=== PATIENT | male | born 1970 | race Caucasian/White ===

== ENCOUNTER 2018-09-23 07:55 | Day surgery (SDC) | payer BC ==
[~2018-09-23 07:55] MED LIST: Lactated Ringers 1,000 ML IV SCH; Lidocaine 1% 6 ML ONE; Lidocaine 1%/Sod Bicarbonate in NS 8.4% 1 ML Syringe IDERM PRN; Propofol 200 MG/20 ML SDV ONE; Sodium Chloride 0.9% 10 ML Syringe FLUSH PRN; fentaNYL 100 MCG/2 ML SDV ONE
[2018-09-23] MEDS ORDERED: Albuterol 0.083% 2.5 MG/3 ML Neb Soln NEB ONE (08:32)
--- NOTE | 2018-09-23 08:41 | PCM.PREANE ---
Preanesthetic Assessment - Anesthesia/Transfusion/Family Hx Anesthesia History: Prior Anesthesia Without Reaction Family History of Anesthesia Reaction: No Transfusion History: No Prior Transfusion(s) Intubation History: Unknown - Review of Systems General: No Symptoms (morbid obesity) Pulmonary: No Symptoms (ETOH: rarely) Cardiovascular: No Symptoms, Dyspnea on Exertion Gastrointestinal: No Symptoms (GERD) Neurological: No Symptoms, Gait Disturbance (none noted but history of plantar fascitis) Other: Reports: Easy Bruising, Sinus Problem (PND-stuffy most days) - Physical Assessment NPO Status Date: 09/22/18 NPO Status Time: 22:00 Pulse: 70 O2 Sat by Pulse Oximetry: 96 Respiratory Rate: 20 Blood Pressure: 159/67 Temperature: 36.9 C Height: 1.85 m Weight: 169 kg ASA Class: 3 Mental Status: Alert & Oriented x3 Airway Class: Mallampati = 2 Dentition: Reports: Normal Dentition, Caries Thyro-Mental Finger Breadths: 3 Mouth Opening Finger Breadths: 3 ROM/Head Extension: Full Lungs: Clear to Auscultation, Normal Respiratory Effort (distant) Cardiovascular: Regular Rate, Regular Rhythm, No Murmurs - Lab Values: All lab values reviewed and noted and within acceptable ranges to proceed with colonoscopy. - Imaging/EKG Impressions: EKG: SB rate 49, PVC's - Allergies Allergies/Adverse Reactions: Allergies Allergy/AdvReac Type Severity Reaction Status Date / Time No Known Allergies Allergy Verified 09/22/18 17:34 - Anesthesia Plan Pre-Op Medication Ordered: None - Acknowledgements Anesthesia Type Planned: MAC Pt an Appropriate Candidate for the Planned Anesthesia: Yes Alternatives and Risks of Anesthesia Discussed w Pt/Guardian: Yes Pt/Guardian Understands and Agrees with Anesthesia Plan: Yes PreAnesthesia Questionnaire HEENT History: Reports: Other (See Below) Other HEENT History: sinus infection, left corneal transplant, wears glasses Cardiovascular History: Reports: None Respiratory History: Reports: None Gastrointestinal History: Reports: GERD Genitourinary History: Reports: None [employer]IST[employer]SE EDUCATION History: Reports: None Musculoskeletal History: Reports: Other (See Below) Other Musculoskeletal History: plantar fasciitis Neurological History: Reports: None Psychiatric History: Reports: Other (See Below) Other Psychiatric History: psychotherapy Endocrine/Metabolic History: Reports: Obesity/BMI 30+ Hematologic History: Reports: None Immunologic History: Reports: None Oncologic (Cancer) History: Reports: None Dermatologic History: Reports: Other (See Below) Other Dermatologic History: acne, rosacea - Past Surgical History Head Surgeries/Procedures: Reports: None HEENT Surgical History: Reports: None Cardiovascular Surgical History: Reports: None Respiratory Surgical History: Reports: None GI Surgical History: Reports: Hernia Repair/Other Female Surgical History: Reports: None Male Surgical History: Reports: None Endocrine Surgical History: Reports: None Neurological Surgical History: Reports: None Musculoskeletal Surgical History: Reports: None Oncologic Surgical History: Reports: None - SUBSTANCE USE Smoking Status *Q: Never Smoker Recreational Drug Use History: No - HOME MEDS Home Medications: Home Meds Albuterol [Ventolin HFA] 2 puff INH Q6H PRN 09/22/18 [History] Brimonidine Tartrate/Timolol [Combigan 0.2%-0.5% Eye Drops] 1 drop EYELF DAILY 09/22/18 [History] Fish Oil/Pownal-3 Fatty Acids [Fish Oil 1,000 MG] 1 gm PO BID 09/22/18 [History] Fluorometholone 1 dose EYELF DAILY 09/22/18 [History] Ibuprofen 600 mg PO Q4H PRN 09/22/18 [History] Multivitamin [Poly-Vitamin] 1 tab PO DAILY 09/22/18 [History] metroNIDAZOLE [Metrogel] 1 dose TOP ASDIRECTED 09/22/18 [History] prednisoLONE acetate [Pred Forte 1% Ophth Susp] 1 drop EYELF DAILY 09/22/18 [ History] - CURRENT (IN HOUSE) MEDS Current Meds: Current Medications Lactated Ringer's (Ringers, Lactated) 1,000 mls @ 125 mls/hr IV ASDIRECTED CHELSY Stop: 09/23/18 23:00 Lidocaine/Sodium Bicarbonate (Buffered Lidocaine 1% In Ns 8.4%) 0.25 ml IDERM ONETIME PRN PRN Reason: Prior to IV Start Stop: 09/23/18 18:00 Sodium Chloride (Saline Flush) 10 ml FLUSH ASDIRECTED PRN PRN Reason: Keep Vein Open Stop: 09/23/18 18:00 Discontinued Medications Albuterol (Proventil Neb Soln) 2.5 mg NEB ONETIME ONE Stop: 09/23/18 08:33 Fentanyl (Sublimaze) Confirm Administered Dose 100 mcg .ROUTE .STK-MED ONE Stop: 09/23/18 06:54 Lidocaine HCl (Xylocaine-Mpf 1%) Confirm Administered Dose 6 mls @ as directed .ROUTE .STK-MED ONE Stop: 09/23/18 06:53 Propofol (Diprivan 20 Ml) Confirm Administered Dose 200 mg .ROUTE .STK-MED ONE Stop: 09/23/18 06:53
[2018-09-23] MEDS ORDERED: Propofol 200 MG/20 ML SDV ONE ×2 (09:23→10:03)
[2018-09-23] MEDS ORDERED: Lactated Ringers 1,000 ML ONE (09:41)
--- NOTE | 2018-09-23 10:27 | PCM.OPNOTE ---
- General Post-Op/Procedure Note Date of Surgery/Procedure: 09/23/18 Operative Procedure(s): colonoscopy to cecum with polypectomy Findings: 1. Transverse colon polyp 2. Splenic flexure polyp 3. Rectal polyp Pre Op Diagnosis: Screening for colon cancer Post-Op Diagnosis: Same Anesthesia Technique: PATRICIA Primary Surgeon: Kristin Zhu Anesthesia Provider: Silvina Guillory Fluid Replacement, Intraop: 1,000 Output, Urine Amount: 0 EBL in mLs: 0 Complications: None apparent Condition: Good
--- NOTE | 2018-09-23 10:30 | PCM.PRNOTE ---
- Free Text/Narrative Note: Operative Report Date of Surgery/Procedure: Dictated 2017 Operative Procedure: Colonoscopy to cecum with polypectomy Pre Op Diagnosis: colorectal cancer screening Post-Op Diagnosis: . Same Surgeon: Kristin Zhu Anesthesia Technique: MAC Anesthesia Provider: Jena Sahu CRNA IV Fluid Replacement, Intraop: 1000 cc Output, Urine Amount: 0cc EBL : 0cc Findings: 1. Transverse colon polyp 2. Splenic flexure polyp 3. Rectal polyp Specimens: 1. Transverse colon polyp 2. Splenic flexure polyp 3. Rectal polyp Indication: The patient is a 48 year-old gentleman who presented to the outpatient clinic requesting colorectal cancer screening. We discussed the procedure of a screening colonoscopy including the polypectomy and biopsy. Risks of bleeding and perforation were discussed, the patient understood and wished to proceed. Written and consent was obtained Description of the procedure: The patient was brought to the endoscopy suite and placed in the left lateral decubitus position. Appropriate monitors were applied. The patient was given MAC anesthesia. An anorectal examination was performed, revealing no external abnormalities. The scope was placed into the rectum and advanced to cecum without difficulty ]. The patients cecum was entered, and the ileocecal valve and appendiceal orifice were identified and normal. Extensive washing was required to remove the mucoid stool that was adherent to the shannon of the cecum and ascending colon At this point, the scope was withdrawn, paying careful attention to the mucosa. The patient had adequate bowel prep, allowing for visualization of 80 % of the mucosa. . There were 3 polyps noted throughout the colon, measuring each 2-3 mm. These polyps were flat. There was a polyp removed in the transverse colon, splenic flexure and rectum, each removed with the cold biopsy forceps. In the rectum, the scope was retroflexed and no abnormalities were noted, except for some minimal hemorrhoidal tissue. The scope was placed back in the lumen and the excess air was aspirated. The patient tolerated the procedure well. Complications: none apparent Condition: Good, transported to PACU in stable condition Kristin Zhu MD General Surgery
--- NOTE | 2018-09-23 11:03 | PCM48HPAN ---
Post Anesthesia Note - EVALUATION WITHIN 48HRS OF ANESTHETIC Vital Signs in Normal Range: Yes Patient Participated in Evaluation: Yes Respiratory Function Stable: Yes Airway Patent: Yes Cardiovascular Function Stable: Yes Hydration Status Stable: Yes Pain Control Satisfactory: Yes Nausea and Vomiting Control Satisfactory: Yes Mental Status Recovered: Yes
== END 2018-09-23 11:02 | disposition home or self-care (01) ==
LOC: JD.SDS 07:55
PROVIDERS: ATTEND Surgery
DX: Z12.11 Encounter for screening for malignant neoplasm of colon (principal); D12.3 Benign neoplasm of transverse colon; K62.1 Rectal polyp; E66.01 Morbid (severe) obesity due to excess calories; Z68.42 Body mass index [BMI] 45.0-49.9, adult; K21.9 Gastro-esophageal reflux disease without esophagitis; Z79.899 Other long term (current) drug therapy
CPT/HCPCS: 45380; J2704; J3010; J7120; J2001